=== PATIENT | male | born 1995 | race African-American/Black ===

== ENCOUNTER 2017-08-18 15:32 | Emergency (ER) | payer SELFPAY ==
[~2017-08-18] VITALS: Ht 190.5 cm; Wt 104.3 kg
--- NOTE | 2017-08-18 16:02 | Emergency Room Report ---
History of Present Illness General Chief Complaint: General Complaint Source: Patient Present Illness HPI 22-year-old male patient presents to ER BIB ambulance s/p ingestion of marijuana bar. 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 Patient denies acute complaints at this time. Patient reports that he had one episode of vomiting. Patient reports he "feels fine now". Patient denies fever , chest pain, shortness of breath, abdominal pain, vision loss, back pain. Patient denies thoughts of hurting himself or others. Reports single episode of vomiting, denies blood in emesis. Allergies: Coded Allergies: No Known Allergies (Unverified , 08/18/17) Patient History Past Medical History: see triage record Reviewed Nursing Documentation: PMH: Agreed; PSxH: Agreed Nursing Documentation-PMH Past Medical History: No Stated History Review of Systems All Other Systems: negative except mentioned in HPI Physical Exam Vital Signs Date Time Temp Pulse Resp B/P (MAP) Pulse Ox O2 Delivery O2 Flow Rate FiO2 08/18/17 15:27 98.8 118 20 144/106 99 Room Air 98.8 Sp02 EP Interpretation: reviewed, normal General Appearance: well appearing, no apparent distress, alert, GCS 15, non- toxic Head: normocephalic, atraumatic Eyes: bilateral eye normal inspection, bilateral eye PERRL ENT: hearing grossly normal, normal pharynx, no angioedema, normal voice, uvula midline, moist mucus membranes Neck: full range of motion Respiratory: lungs clear, normal breath sounds, no rhonchi, no respiratory distress, no accessory muscle use, no wheezing, speaking full sentences Cardiovascular #1: regular rate, rhythm, no edema Gastrointestinal: non tender, soft, no mass, non-distended, no guarding, no rebound Musculoskeletal: back normal, digits/nails normal, gait/station normal, normal range of motion, non-tender Neurologic: alert, oriented x3, responsive, motor strength/tone normal, sensory intact Psychiatric: mood/affect normal Skin: no rash Lymphatic: no adenopathy Medical Decision Making PA Attestation Dr. Sinclair is my supervising Physician whom patient management has been discussed with. Diagnostic Impression: Primary Impression: Marijuana use ER Course Pt. presents to the ED BIB ambulance c/o drug use. Ddx considered but are not limited to drug use, alcohol use, drug toxicity. Vital signs: are WNL, pt. is afebrile Ordered labs and medication. EKG, CBC, CMP, Urine drug screen, Acetaminophen level, Salicylate level, serum alcohol, Zofran. ER COURSE: Provided Zofran for vomiting symptoms. EKG no ST elevations, no arrhythmias. Troponin WNL of negative. instructed patient to followup with PCP for further treatment and referral to cardiology as needed. CBC unremarkable CMP shows small elevation in creatinine. Discuss results with Dr. Sinclair, will provide fluids to patient. urine drug screen positive for THC. Instructed patient not to consume edibles or smoke marijuana to avoid symptoms. Serum alcohol, salicylate and acetaminophen level low. Discuss patient with Dr. Sinclair. Agrees with treatment and plan. Patient resting comfortably in bed, asleep, in no acute distress. Discuss lab results with patient. Provided copy of results to patient. IV fluids completed. Patient able to tolerate fluids PO. Patient stable for discharge. Patient reports feeling better, ready to go home. Patient will be picked up by friend. DISCHARGE: At this time pt is stable for d/c to home. Patient is resting comfortably, in no acute distress, nontoxic appearing, talking without difficulty. Patient to take medications as instructed Will provide with patient care instructions and any necessary prescriptions. Care plan and follow-up instructions provided. Patient instructed to follow-up with primary care provider in 3 - 5 days. Patient questions asked and answered. Patient reports understanding and agreement to treatment plan. ER precautions given. Patient instructed to return to ER immediately for any new or worsening of symptoms including but not limited to increasing SOB, persistent fever. - Please note that this Emergency Department Report was dictated using [employer] hr assessment technology software, occasionally this can lead to erroneous entry secondary to interpretation by the dictation equipment. Labs Test 08/18/17 17:20 White Blood Count 11.7 K/UL (4.8-10.8) Red Blood Count 4.94 M/UL (4.70-6.10) Hemoglobin 14.6 G/DL (14.2-18.0) Hematocrit 44.3 % (42.0-52.0) Mean Corpuscular Volume 90 FL (80-99) Mean Corpuscular Hemoglobin 29.7 PG (27.0-31.0) Mean Corpuscular Hemoglobin Concent 33.1 G/DL (32.0-36.0) Red Cell Distribution Width 11.5 % (11.6-14.8) Platelet Count 226 K/UL (150-450) Mean Platelet Volume 7.0 FL (6.5-10.1) Neutrophils (%) (Auto) 77.0 % (45.0-75.0) Lymphocytes (%) (Auto) 13.2 % (20.0-45.0) Monocytes (%) (Auto) 8.1 % (1.0-10.0) Eosinophils (%) (Auto) 0.3 % (0.0-3.0) Basophils (%) (Auto) 1.4 % (0.0-2.0) Sodium Level 139 MMOL/L (136-145) Potassium Level 4.0 MMOL/L (3.5-5.1) Chloride Level 102 MMOL/L (98-107) Carbon Dioxide Level 25 MMOL/L (21-32) Anion Gap 12 mmol/L (5-15) Blood Urea Nitrogen 20 mg/dL (7-18) Creatinine 1.6 MG/DL (0.55-1.30) Estimat Glomerular Filtration Rate > 60 mL/min (>60) Glucose Level 123 MG/DL (74-106) Calcium Level 9.6 MG/DL (8.5-10.1) Total Bilirubin 0.5 MG/DL (0.2-1.0) Aspartate Amino Transf (AST/SGOT) 19 U/L (15-37) Alanine Aminotransferase (ALT/SGPT) 30 U/L (12-78) Alkaline Phosphatase 57 U/L (46-116) Troponin I 0.012 ng/mL (0.000-0.056) Total Protein 7.9 G/DL (6.4-8.2) Albumin 4.2 G/DL (3.4-5.0) Globulin 3.7 g/dL Albumin/Globulin Ratio 1.1 (1.0-2.7) Salicylates Level 0.6 ug/mL (2.8-20) Urine Opiates Screen Negative (NEGATIVE) Acetaminophen Level < 2 MCG/ML (10-30) Urine Barbiturates Screen Negative (NEGATIVE) Phencyclidine (PCP) Screen Negative (NEGATIVE) Urine Amphetamines Screen Negative (NEGATIVE) Urine Benzodiazepines Screen Negative (NEGATIVE) Urine Cocaine Screen Negative (NEGATIVE) Urine Marijuana (THC) Screen Positive (NEGATIVE) Serum Alcohol < 3 mg/dL EKG Diagnostic Results Rate: normal Rhythm: NSR ST Segments: no acute changes ASA given to the pt in ED: No PA Scribe Text Barron Ace PA-C Rhythm Strip Diag. Results EP Interpretation: yes Rate: 86 Rhythm: NSR, no PVC's, no ectopy PA Scribe Text Barron Ace PA-C Last Vital Signs Date Time Temp Pulse Resp B/P (MAP) Pulse Ox O2 Delivery O2 Flow Rate FiO2 08/18/17 15:27 98.8 118 20 144/106 99 Room Air 98.8 Disposition: HOME, SELF-CARE Condition: Stable Patient Instructions: Drug Overdose Additional Instructions: Followup with primary care provider in 3 -5 days. Discuss referral to cardiology or further workup as needed due to test results. Take medications as directed. Patient questions asked and answered. ER precautions given, patient instructed to return to ER immediately for any new or worsening of symptoms. Francesco Ace August 18, 2017 16:02
[2017-08-18 17:20] VITALS: BP 113/70
[2017-08-18 17:44] LABS: BASOPHILS % (AUTO) 1.4 % (0.0-2.0); EOSINOPHILS % (AUTO) 0.3 % (0.0-3.0); HEMATOCRIT 44.3 % (42.0-52.0); HEMOGLOBIN 14.6 G/DL (14.2-18.0); LYMPHOCYTES % (AUTO) 13.2 % (20.0-45.0); MEAN CORPUSCULAR VOLUME 90 FL (80-99); MONOCYTES % (AUTO) 8.1 % (1.0-10.0); PLATELET COUNT 226 K/UL (150-450); RED BLOOD COUNT 4.94 M/UL (4.70-6.10); RED CELL DISTRIBUTION WIDTH 11.5 % (11.6-14.8); WHITE BLOOD COUNT 11.7 K/UL (4.8-10.8)
[2017-08-18 17:55] LABS: ANION GAP 12 mmol/L (5-15); BLOOD UREA NITROGEN 20 mg/dL (7-18); CALCIUM 9.6 MG/DL (8.5-10.1); CARBON DIOXIDE 25 MMOL/L (21-32); CHLORIDE 102 MMOL/L (98-107); CREATININE 1.6 MG/DL (0.55-1.30); SODIUM 139 MMOL/L (136-145)
[2017-08-18 18:09] LABS: ALANINE AMINOTRANSFERASE 30 U/L (12-78); ALBUMIN 4.2 G/DL (3.4-5.0); ALBUMIN/GLOBULIN RATIO 1.1 (1.0-2.7); ALKALINE PHOSPHATASE 57 U/L (46-116); ASPARTATE AMINO TRANSFERASE 19 U/L (15-37); BILIRUBIN,TOTAL 0.5 MG/DL (0.2-1.0)
[2017-08-18 19:15] VITALS: BP 121/69
[2017-08-18 21:00] VITALS: BP 118/60
[2017-08-18 21:21] VITALS: BP 118/60
--- NOTE | 2017-08-20 11:52 | Cardiology Report ---
APPROVED REPORT EKG Measurement Heart [id number] Normal sinus rhythm Early repolarization Normal ECG
== END 2017-08-18 21:21 | disposition home or self-care (01) ==
LOC: EDBD 15:32 → EMR 15:58
DX: F12.10 Cannabis abuse, uncomplicated (principal); R11.10 Vomiting, unspecified; R00.2 Palpitations; R61 Generalized hyperhidrosis
CPT/HCPCS: 36415; 80053; 80307; 84484; 85025; 93005; 96374; 99283; G0480; 80329